=== PATIENT | female | born 1965 | race Caucasian/White ===

== ENCOUNTER 2021-10-28 12:45 | Inpatient (IN) | payer BC ==
[~2021-10-28] VITALS: Ht 157.5 cm; Wt 61.8 kg
[2021-10-28 13:41] LABS: BASOPHILS ABSOLUTE AUTO 0.04 K/mm3 (0.00-0.23); BASOPHILS PERCENT AUTO 1 % (0-2); EOSINOPHILS ABSOLUTE AUTO 0.18 K/mm3 (0.00-0.68); EOSINOPHILS PERCENT AUTO 2 % (0-6); Hematocrit 42.8 % (33.0-51.0); Hemoglobin 14.4 g/dL (11.5-16.0); IMMATURE GRAN ABSOLUTE AUTO 0.03 K/mm3 (0.00-0.10); IMMATURE GRAN PERCENT AUTO 0 % (0-1); LYMPHOCYTES ABSOLUTE AUTO 1.24 K/mm3 (0.84-5.20); LYMPHOCYTES PERCENT AUTO 16 % (21-46); MONOCYTES ABSOLUTE AUTO 0.51 K/mm3 (0.16-1.47); MONOCYTES PERCENT AUTO 6 % (4-13); Mean Corpuscular HGB 29.1 pg (26.0-34.0); Mean Corpuscular HGB Conc 33.6 g/dL (31.5-36.5); Mean Corpuscular Volume 87 fL (80-100); Mean Platelet Volume 10.3 fL (9.1-12.4); NEUTROPHILS ABSOLUTE AUTO 5.93 K/mm3 (1.96-9.15); NEUTROPHILS PERCENT AUTO 75 % (41-73); Platelet Count 241 K/mm3 (150-400); RDW Coefficient Variation 11.9 % (11.7-14.2); RDW Standard Deviation 37.6 fL (35.1-46.3); Red Blood Cell Count 4.94 M/mm3 (3.80-5.20); White Blood Cell Count 7.93 K/mm3 (4.00-11.30)
[2021-10-28 14:14] LABS: Albumin, Blood 3.4 g/dL (3.4-5.0); Albumin/Globulin Ratio 1.1 (0.8-1.8); Bilirubin, Total 0.4 mg/dL (0.1-1.0); Bun/Creatinine Ratio 27.4 (12.0-20.0); Calcium, Blood 8.9 mg/dL (8.5-10.1); Creatinine, Blood 0.55 mg/dL (0.40-1.00); Globulin, Blood 3.1 g/dL (2.2-4.0); Potassium, Blood 4.2 mmol/L (3.5-5.5); Total Protein, Blood 6.5 g/dL (6.4-8.2)
[2021-10-28 16:56] LABS: CHOL/HDL RATIO 4.6; Cholesterol 261 mg/dL (50-200); HDL Cholesterol 57 mg/dL (>39); LDL/HDL RATIO 2.9; Low Density Lipoprotein Chol 165 mg/dL (0-110); Triglycerides 195 mg/dL (30-160); Very Low Density Lipoprot Chol 39 mg/dL (6-32)
[2021-10-28] MEDS ORDERED: IBUP800 PO (17:15)
[2021-10-28 17:35] LABS: Anti-Xa UFH, PHA Monitoring <0.10 IU/mL; International Normalized Ratio 0.93; Prothrombin Time Results 9.8 Sec (9.7-11.5)
--- NOTE | 2021-10-28 19:14 | NUR ---
ADMISSION/SHIFT SUMMARY: PT IS ER ADMIT ARRIVING APPROX 1730 TO PCU ROOM. PT ARRIVES A&Ox4, MAINTAINS O2 SATS >93% ON RA, SR ON MONITOR. PT DENIES SOB, CP. PT STATES CP INTERMITTENT T/OUT MORNING, DESCRIBES CONSTRICTING PRESSURE TO UPPER CHEST W/SHARPNESS IN THROAT, TIGHTNESS IN ARMS AND MILD TINGLING IN HANDS. PT DENIES AGGRAVATED BY ACTIVITY VS REST. ECHO HAS BEEN COMPLETED, AWAITING EVAL BY AIR LIAISON AND SPECIAL STAFF. PT ORIENTED TO ROOM, VISITORS IN ROOM EDUCATED RE: VISITING HOURS. PT RESTING IN BED, CALL LIGHT WITHIN REACH.
[2021-10-29 01:44] LABS: Bun/Creatinine Ratio 32.5 (12.0-20.0); Calcium, Blood 8.6 mg/dL (8.5-10.1); Creatinine, Blood 0.49 mg/dL (0.40-1.00); Potassium, Blood 3.6 mmol/L (3.5-5.5)
[2021-10-29 01:51] LABS: BASOPHILS ABSOLUTE AUTO 0.08 K/mm3 (0.00-0.23); BASOPHILS PERCENT AUTO 1 % (0-2); EOSINOPHILS ABSOLUTE AUTO 0.34 K/mm3 (0.00-0.68); EOSINOPHILS PERCENT AUTO 4 % (0-6); Hematocrit 39.3 % (33.0-51.0); Hemoglobin 13.1 g/dL (11.5-16.0); IMMATURE GRAN ABSOLUTE AUTO 0.04 K/mm3 (0.00-0.10); IMMATURE GRAN PERCENT AUTO 0 % (0-1); LYMPHOCYTES ABSOLUTE AUTO 3.62 K/mm3 (0.84-5.20); LYMPHOCYTES PERCENT AUTO 40 % (21-46); MONOCYTES ABSOLUTE AUTO 0.64 K/mm3 (0.16-1.47); MONOCYTES PERCENT AUTO 7 % (4-13); Mean Corpuscular HGB 29.3 pg (26.0-34.0); Mean Corpuscular HGB Conc 33.3 g/dL (31.5-36.5); Mean Corpuscular Volume 88 fL (80-100); Mean Platelet Volume 10.5 fL (9.1-12.4); NEUTROPHILS ABSOLUTE AUTO 4.39 K/mm3 (1.96-9.15); NEUTROPHILS PERCENT AUTO 48 % (41-73); Platelet Count 227 K/mm3 (150-400); RDW Coefficient Variation 11.9 % (11.7-14.2); RDW Standard Deviation 38.4 fL (35.1-46.3); Red Blood Cell Count 4.47 M/mm3 (3.80-5.20); White Blood Cell Count 9.11 K/mm3 (4.00-11.30)
--- NOTE | 2021-10-29 05:55 | NUR ---
SHIFT SUMMARY Assumed care of patient at 1900, A/Ox4, independent in room and cooperative with care. Reports no CP/pressure or SOB. Patient does report mild headache towards end of shift, located behind L eye. Denies any vision changes, also all other neuro intact. Patient is attempting to sleep more to see if that helps. Maintains over 93% on RA, snoring noted during sleep. LS clear on top and dim at bases. Patient every day smoker, refused nicotine patch. SR on tele in 60's, strong +2 pulses radial/pedals bl. Patients CBG indicated need to contact physician after giving low sliding scale ACHS dosing. Physician gave orders for change to medium scale and a recheck at [phone] and dose then according to new scale. CBG did not indicate need for any coverage at that time. Heparin infusing through RAC 20g per emar. VSS. Was made NPO after MN. Will report to miguel TEJEDA.
[2021-10-29 11:40] LABS: Influenza A, PCR NEGATIVE (NEGATIVE); Influenza B, PCR NEGATIVE (NEGATIVE); Resp Syncytial Virus, PCR NEGATIVE (NEGATIVE); SARS-Cov-2 (COVID-19) PCR, MMC NEGATIVE (NEGATIVE)
--- NOTE | 2021-10-29 19:27 | NUR ---
SHIFT SUMMARY PATIENT ALERT AND ORIENTED THROUGHOUT SHIFT. NPO PRIOR TO ANGIOGRAM WITH DR BARRAZA. 1 STENT WAS PLACED. PATIENT RETURNED TO ROOM ALERT AND ORIENTED. TR BAND IN PLACE TO RIGHT RADIAL SITE. TOLERATING CARDIAC AND ADA DIET. BLOOD GLUCOSE COVERED WITH HUMALOG PER EMAR. VSS. 10 MINUTES AFTER RETURN TO ROOM RIGHT WRIST SITE NOTED TO HAVE NEW HEMATOMA WITH SWELLING AND BRUISING. PRESSURE WAS HELD TO RIGHT RADIAL SITE FOR 20 MINUTES. TR BAND WAS PATENT AND INFLATED. DEFLATION BEGAN 3 HOURS AFTER ARRIVAL. HEMATOMA WAS OUTLINED AND NO FURTHER SIGNS OF SWELLING AT THIS TIME. SBA UP TO BATHROOM.
[2021-10-30 05:00] LABS: Anion Gap 6 mmol/L (6-16); Blood Urea Nitrogen 15 mg/dL (8-24); Bun/Creatinine Ratio 29.4 (12.0-20.0); CO2, Blood 24 mmol/L (21-32); Chloride, Blood 111 mmol/L (98-108); Creatinine, Blood 0.51 mg/dL (0.40-1.00); Glomerular Filtration Rate 108 (60-); Glucose, Blood 241 mg/dL (70-99); Phosphorus, Blood 3.3 mg/dL (2.5-4.9); Potassium, Blood 3.9 mmol/L (3.5-5.5); Sodium, Blood 141 mmol/L (136-145)
--- NOTE | 2021-10-30 05:58 | NUR ---
SHIFT SUMMARY make needs known. No acute changes this shift. Will report to miguel RN. Assumed care of patient at 1900, A/Ox4, independent in room and cooperative with care. Reports no CP/pressure or SOB. SR on tele in 70's. R radial site recovered at 2200, hematoma located just proximal to TR band site, was outlined on dayshift and is improving. R hand swelling noted, ice was applied and swelling has decreased. Strong pulses and equal cap refills on L and R fingers. Patient doesn't report any tingling or pain in hand. CBG was in the 140's and didn't require any coverage. VSS. Entered dietitian consult for new diabetes diagnosis. Will report to miguel TEJEDA.
--- NOTE | 2021-10-30 09:07 | NUR ---
AM NOTE: PATIENT ALERT AND ORIENTED X4. DENIES NUMBNESS/TINGLING. ABLE TO STAND AND TRANSFER IND. S/P ANGIO 10/29 WITH 1 STENT. RIGHT RADIAL SITE WITH TEGADERM AND ARM BOARD IN PLACE. HEMATOMA PROXIMAL TO SITE IMPROVING. SOFT AND NONTENDER. TELE SHOWING SINUS RHYTHM WITH HR 70'S. DENIES CHEST PAIN/PRESSURE. BP ON SOFTER SIDE. NO SIGNS OF EDEMA. ON ROOM AIR SATING ABOVE 94%. LUNGS SOUNDING CLEAR AND DIM. DENIES COUGH. EVERYDAY SMOKER, DENIES NEED FOR NICOTINE THIS AM. EATING WELL. BLOOD SUGARS ACHS. DM EDUCATION PROVIDED. PATIENT GIVING SELF INSULIN INJECTIONS WITH THIS RN SUPERVISION. AT BEDSIDE AND HAS HISTORY OF DM WELL. VERY ENCOURAGING AND REINFORCING EDUCATION TO PATIENT WELL. IV SALINE LOCKED. DENIES ABDOMINAL PAIN/NAUSEA. CALL LIGHT IN REACH. DR. DANIELS IN THIS AM TO SEE PATIENT. NO NEW ORDERS FOR THIS RN. PATIENT DENIES NEEDS AT THIS TIME. WILL CONTINUE TO MONITOR.
--- NOTE | 2021-10-30 10:34 | NUR ---
DR. BARRAZA IN TO SEE PATIENT. SIGNED OFF ON CARE. DR. DANIELS CALLED. PLAN TO DISCHARGE PATIENT THIS AFTERNOON. THIS RN PROVIDED EDUCATION/TEACHING ON DIABETES AND HEART HEALTHY LIFESTYLE. PATIENT AND ABLE TO TEACH BACK AND VERBALIZE TEACHINGS. EDUCATION INCLUDED - BLOOD SUGAR CHECKS, SLIDING SCALE, SHORT VS LONG ACTING INSULIN, HOW TO GIVE INSULIN, S/S OF HYPO VS HYPERGLYCEMIA, ADA DIET AND LIFESTYLE, HEMOGLOBIN A1C, HEART HEALTHY DIET/LIFESTYLE, STENT CARE/CARD, CARDIAC MEDICATIONS INCLUDING ASPIRIN, PLAVIX, LIPITOR, AND METOPROLOL, POST CARE FOR ANGIO/RIGHT RADIAL SITE CARE, MONITORING HR AND BP WITH MEDICATIONS, AND SMOKING CESSATION. VERBAL EDUCATION PROVIDED WELL WRITTEN. CALL PLACED TO AUTOMOBILE BODY REPAIRER OFFICE TO VISIT PATIENT BEFORE DISCHARGE.
[2021-10-30] MEDS ORDERED: CLOP75 PO (11:07)
[2021-10-30] MEDS ORDERED: ASPI81CH PO (11:07)
[2021-10-30] MEDS ORDERED: ATOR80 PO (11:07)
[2021-10-30] MEDS ORDERED: INSULANI SC (11:08)
[2021-10-30] MEDS ORDERED: LISI5 PO (11:09)
[2021-10-30] MEDS ORDERED: HUMALOG KW100 UNIT/1 SC (11:09)
[2021-10-30] MEDS ORDERED: METO25ER PO (11:09)
[2021-10-30] MEDS ORDERED: NICO21TP TOP (11:10)
--- NOTE | 2021-10-30 12:23 | NUR ---
DISCHARGE: SEE PREVIOUS NOTES FOR UPDATES. NO ACUTE CHANGES. PATIENT REMAINED SYMPTOM FREE. SEE PREVIOUS NOTE FOR EDUCATION PROVIDED. IV REMOVED WNL. VITAL SIGNS REMAINS STABLE. NO CHANGES TO TELE. DISCHARGE INSTRUCTIONS REVIEWED AND PATIENT ABLE TO TEACH BACK ALL EDUCATION. IN TO PICK PATIENT UP. PATIENT LEFT UNIT WITH ALL PERSONAL BELONGINGS, INCLUDING DISCHARGE PAPERWORK, WRITTEN PRESCRIPTIONS, AND STENT CARD.
== END 2021-10-30 12:37 | disposition home or self-care (01) | DRG 247 ==
LOC: ER 12:45 → PCU 17:16
PROVIDERS: Family Medicine; Internal Medicine Interventional Cardiology; Physician Assistant; ADMIT Internal Medicine
PROC: 027034Z Dilation of Coronary Artery, One Artery with Drug-eluting Intraluminal Device, Percutaneous Approach (ICD-10-PCS; principal; 2021-10-29)
PROC: B2111ZZ Fluoroscopy of Multiple Coronary Arteries using Low Osmolar Contrast (ICD-10-PCS; 2021-10-29)
DX: I21.4 Non-ST elevation (NSTEMI) myocardial infarction (principal); Z20.822 Contact with and (suspected) exposure to COVID-19; E11.65 Type 2 diabetes mellitus with hyperglycemia; M17.0 Bilateral primary osteoarthritis of knee; I25.10 Atherosclerotic heart disease of native coronary artery without angina pectoris; J44.9 Chronic obstructive pulmonary disease, unspecified; F17.210 Nicotine dependence, cigarettes, uncomplicated; Z71.6 Tobacco abuse counseling; Z88.5 Allergy status to narcotic agent; Z91.018 Allergy to other foods
CPT/HCPCS: 0241U; 36415; 71045; 76937; 80048; 80053; 80061; 80069; 82947; 83036; 83690; 84443; 84484; 85025; 85520; 85610; 85730; 93005; 93010; 93306; 93454; 93571; 94762; 99152; 99153; 99285-25; A9270; C1725; C1769; C1874; C1887; C1894; C9600; J1644; J1815; J2250; J3010; J7030; J7040; Q9967

== ENCOUNTER → 2022-09-11 | Outpatient (CLI) | payer BC ==
[~2022-09-11] MED LIST: ASPI81CH PO; ATOR80 PO; CLOP75 PO; HUMALOG KW100 UNIT/1 SC; IBUP800 PO; INSULANI SC; LISI5 PO; METO25ER PO; NICO21TP TOP
[2022-09-11 14:07] LABS: U Amphetamine Screen Not Detected; U Barbituate Screen Not Detected; U Benzodiazapine Screen Not Detected; U Buprenorphine Screen Not Detected; U Cannabinoids Screen Not Detected; U Cocaine Screen Not Detected; U Methadone Screen Not Detected; U Methamphetamine Screen Not Detected; U Opiates Screen Not Detected; U Oxycodone Screen DETECTED; U Phencyclidine Screen Not Detected; U Propoxyphene Screen Not Detected
== END ==
LOC: LAB SHORT 10:30 → LAB 10:30
PROVIDERS: Family Medicine
DX: Z51.81 Encounter for therapeutic drug level monitoring (principal); Z79.01 Long term (current) use of anticoagulants

== ENCOUNTER → 2024-05-11 | Outpatient (CLI) | payer BC ==
[2024-05-11 17:49] LABS: U Amphetamine Screen Not Detected; U Barbituate Screen Not Detected; U Benzodiazapine Screen Not Detected; U Buprenorphine Screen Not Detected; U Cannabinoids Screen Not Detected; U Cocaine Screen Not Detected; U Methadone Screen Not Detected; U Methamphetamine Screen Not Detected; U Opiates Screen Not Detected; U Oxycodone Screen DETECTED; U Phencyclidine Screen Not Detected
== END ==
LOC: LAB SHORT 15:23 → LAB 15:23
PROVIDERS: Family Medicine
DX: Z51.81 Encounter for therapeutic drug level monitoring (principal); Z79.891 Long term (current) use of opiate analgesic

== ENCOUNTER → 2024-11-09 | Outpatient (CLI) | payer BC ==
[2024-11-09 18:14] LABS: U Amphetamine Screen Not Detected; U Barbituate Screen Not Detected; U Benzodiazapine Screen Not Detected; U Cannabinoids Screen Not Detected; U Cocaine Screen Not Detected; U Methadone Screen Not Detected; U Methamphetamine Screen Not Detected; U Opiates Screen Not Detected; U Oxycodone Screen DETECTED; U Phencyclidine Screen Not Detected
[2024-11-09 18:15] LABS: U Buprenorphine Screen Not Detected
== END | disposition home or self-care (01) ==
LOC: LAB SHORT 15:49 → LAB 15:49
PROVIDERS: Family Medicine
DX: Z51.81 Encounter for therapeutic drug level monitoring (principal); Z79.891 Long term (current) use of opiate analgesic